=== PATIENT | female | born 1985 | race African-American/Black ===

== ENCOUNTER 2019-04-09 15:38 | Emergency (ER) | payer BC, OTHER ==
[~2019-04-09] VITALS: Ht 167.6 cm; Wt 127.3 kg
[2019-04-09 15:43] VITALS: BP 145/77
[2019-04-09] MEDS: PENICILLIN G BENZATHINE LA 1,200,000 UNITS/2 ML SYRINGE IM ONE (18:09)
== END 2019-04-09 18:18 | disposition home or self-care (01) ==
LOC: EMS 15:44
DX: J02.0 Streptococcal pharyngitis (principal); J45.909 Unspecified asthma, uncomplicated; F17.210 Nicotine dependence, cigarettes, uncomplicated
CPT/HCPCS: 87430; 96372; 99283; 99406; J0561

== ENCOUNTER 2020-01-25 05:55 | Emergency (ER) | payer BC, OTHER ==
[~2020-01-25] VITALS: Ht 170.2 cm; Wt 95.5 kg
[2020-01-25] MEDS ORDERED: BACITRACIN 0.9 GM PACKET OINTMENT TP ONE (06:45)
[2020-01-25 06:59] VITALS: BP 132/81
== END 2020-01-25 07:08 | disposition home or self-care (01) ==
LOC: EMS 05:55
DX: L03.115 Cellulitis of right lower limb (principal); I87.8 Other specified disorders of veins; F17.210 Nicotine dependence, cigarettes, uncomplicated; J45.909 Unspecified asthma, uncomplicated

== ENCOUNTER 2020-03-02 17:03 | Emergency (ER) | payer OTHER ==
[~2020-03-02] VITALS: Ht 167.6 cm; Wt 131.8 kg
[2020-03-02] MEDS ORDERED: BETA50CR5 TP (17:09)
[2020-03-02] MEDS ORDERED: PRED10 PO (17:09)
[2020-03-02] MEDS ORDERED: CefTRIAXone SODIUM 1 GM/VIAL IM ONE (19:00)
[2020-03-02] MEDS ORDERED: LIDOCAINE/PF 1% 2 ML VIAL IM ONE (19:00)
[2020-03-02 20:13] VITALS: BP 110/62
== END 2020-03-02 20:34 | disposition home or self-care (01) ==
LOC: EMS 17:03
DX: L03.115 Cellulitis of right lower limb (principal); J45.909 Unspecified asthma, uncomplicated; Z79.899 Other long term (current) drug therapy
CPT/HCPCS: 96372; 99283; J0696; J3490

== ENCOUNTER 2024-12-01 15:26 | Emergency (ER) | payer OTHER ==
[~2024-12-01] VITALS: Ht 170.2 cm; Wt 140.9 kg
[~2024-12-01 15:26] MED LIST: BETA50CR5 TP; PRED-729 PO
[2024-12-01 15:41] VITALS: BP 122/62; PULSE 103; RESP 20; TEMP 97.7; O2SAT 96
[2024-12-01 15:56] LABS: COVID AG,FIA SOURCE NASAL SWAB
[2024-12-01 16:20] LABS: INFLUENZA TYPE A NEGATIVE FOR TYPE A (NEGATIVE); INFLUENZA TYPE B NEGATIVE FOR TYPE B (NEGATIVE)
[2024-12-01 16:22] LABS: SARS-COV2 (COVID) ANTIGEN,FIA Negative (Negative)
== END 2024-12-01 16:10 | disposition left against medical advice (07) ==
LOC: EMS 15:39
DX: R06.02 Shortness of breath (principal); J45.909 Unspecified asthma, uncomplicated; F17.210 Nicotine dependence, cigarettes, uncomplicated; Z79.52 Long term (current) use of systemic steroids; Z20.822 Contact with and (suspected) exposure to COVID-19
CPT/HCPCS: 87804; 99283